=== PATIENT | female | born 1980 | race Caucasian/White ===

== ENCOUNTER → 2016-10-06 | Outpatient (CLI) | payer BC ==
[~2016-10-06] MED LIST: CHOL100010 PO; CHOL200010 PO; DOCO1CAP10 PO; FERR325T51 PO; IRON PO; MTR600X PO; MULT-506 PO; OXYC-57 PO; PRENTAB26 PO; SUMA50TA15 PO
== END | disposition home or self-care (01) ==
LOC: C.PAPS 12:35
PROVIDERS: ATTEND Obstetrics & Gynecology
DX: Z01.419 Encounter for gynecological examination (general) (routine) without abnormal findings (principal)

== ENCOUNTER → 2016-10-25 | Day surgery (SDC) | payer BC ==
[2016-10-11 11:51] VITALS: Ht 157.5 cm; Wt 57.7 kg
[~2016-10-25] VITALS: Ht 157.5 cm; Wt 57.7 kg
[~2016-10-25] MED LIST changes: +ATROPINE SULFATE 0.1 MG/ML 5ML SYR IV PRN; -CHOL100010 PO; -DOCO1CAP10 PO; +EpHEDrine SULFATE INJ 50 MG/ML AMP IV PRN; +FENTANYL CITRATE INJ 50 MCG/1 ML 2 ML VIAL IV PRN; +FENTANYL CITRATE INJ 50 MCG/1 ML 2 ML VIAL ONE; -FERR325T51 PO; +HYDROCODONE/ACETAMOPHEN 5/325MG TAB PO PRN; +LACTATED RINGER'S 1000ML 1,000 ML IV SCH; +LIDOCAINE HCL 2% 2 ML VIAL (20MG/ML) ONE; +LIDOCAINE/EPINEPHRINE 1% INJ 50 ML VIAL ONE; +MIDAZOLAM HCL 1 MG/ML 2ML VIAL ONE; -MTR600X PO; -OXYC-57 PO; -PRENTAB26 PO; +PROPOFOL IV EMULSION 10 MG/ML 20 ML VIAL IV ONE; +SUCCINYLCHOLINE CHLORIDE 20 MG/ML 10 ML VIAL IV ONE
--- NOTE | 2016-10-25 09:40 | History & Physical Bridge - [place] ---
H&P Re-Evaluation Bridge Note: I have examined the patient, reviewed the History & Physical and in the interval since the performance of the History & Physical I have noted the following changes of clinical significance: No changes noted
--- NOTE | 2016-10-25 10:41 | History and Physical: Surg Cnt ---
History & Physical Date Oct 25, 2016. Chief Complaint RIGHT EAR SKIN LESION History of Present Illness The patient is a 36 year old female with complaints of RIGHT EAR SKIN LESION FOR WHICH SHE DESIRES SURGICAL EXCISION UNDER LOCAL ANESTHESIA. Past Medical/Surgical History PMH: MIGRAINES, IRON DEFICIENCY ANEMIA, VITAMIN D DEFICIENCY PSH: S/P , S/P ORAL SURGERY Additional History Hepatic Disease: No Endocrine Disorder: No Kidney Disease: No Hypertension: No Heart Disease: No Bleeding Tendencies: No Infectious Diseases: No Allergies Coded Allergies: No Known Allergies (Unverified , 10/25/16) Home Medications Scheduled Cholecalciferol (Vitamin D), 1 CAP PO QAM Multivitamin (Multivitamin), 1 TAB PO QAM [Iron], 65 MG PO QAM Scheduled PRN Sumatriptan Succinate (Imitrex), 50 MG PO PRN PRN for Migraine Physical Examination Skin: warm/dry, no rash Eyes: normal inspection, EOMI, sclerae normal ENT: + pertinent finding (ASYMMETRIC UNIFORM BROWN PAPULE ~5MM WITH SMOOTH BORDERS INVOLVING SUPERIOR ASPECT OF RIGHT PINNA POSTERIORLY) Head: normocephalic, atraumatic Neck: supple, no adenopathy, trachea midline Respiratory/Chest: lungs clear, normal breath sounds, no respiratory distress Cardiovascular: regular rate, rhythm, no edema, no murmur Neurologic/Psych: no motor/sensory deficits, alert, normal reflexes, oriented x 3 Diagnosis RIGHT EAR SKIN LESION Plan of Treatment EXCISIONAL BIOPSY OF RIGHT EAR SKIN LESION
[2016-10-25 11:11] VITALS: TEMP 37.2
--- NOTE | 2016-10-25 11:19 | [facility] Operative Report ---
Operative Report Operative Date Oct 25, 2016. Pre-Operative Diagnosis Right Ear Skin Lesion Post-Operative Diagnosis Same Procedure(s) Performed Right Ear Skin Lesion Excision Surgeon Dr Campbell Director Of Consumer Affairs Surgeon(s) None Estimated Blood Loss 5ml Findings 5MM RAISED BROWN PAPULE INVOLVING POSTERIOR ASPECT OF RIGHT PINNA SKIN Specimens A: Right Ear Skin Lesion I attest to the content of the Intraoperative Record and any orders documented therein. Any exceptions are noted below.
--- NOTE | 2016-10-25 11:21 | Discharge Instructions ---
Discharge Instructions Date of Service Oct 25, 2016. Admission Reason for Admission: Right Ear Skin Lesion Discharge Discharge Diagnosis / Problem: SAME Discharge Goals Goal(s): Diagnostic testing Activity Recommendations Activity Limitations: as noted below KEEP RIGHT EAR DRY FOR 1 WEEK . Current Hospital Diet Patient's current hospital diet: Discharge Diet Recommended Diet: Regular Diet Procedures Procedures Performed: Right Ear Skin Lesion Excision Pending Studies Studies pending at discharge: no Medical Emergencies . Who to Call and When: Medical Emergencies: If at any time you feel your situation is an emergency, please call 911 immediately. . Non-Emergent Contact Non-Emergency issues call your: Surgeon . . "Provider Documentation" section prepared by Robert Campbell. VTE Core Measure Inpt VTE Proph given/why not?: Treatment not indicated
[2016-10-25 11:25] VITALS: BP 108/67; PULSE 61; O2SAT 100
--- NOTE | 2016-10-25 14:02 | OPERATIVE REPORT ---
DATE OF OPERATION: 10/25/2016 PREOPERATIVE DIAGNOSIS: Right ear skin lesion. POSTOPERATIVE DIAGNOSIS: Right ear skin lesion. PROCEDURE: Excisional biopsy of right ear skin lesion. SURGEON: Dr. Adrian MD ANESTHESIA: Local anesthesia. ESTIMATED BLOOD LOSS: 5 mL. FINDINGS: Raised brown papule that measured approximately 5 mm in greatest dimension involving the posterior aspect of the right pinna posteriorly. SPECIMENS: Right ear skin lesion for permanent pathological assessment. COMPLICATIONS: None. INDICATIONS FOR THE PROCEDURE: The patient is a very pleasant 36-year-old female with a history of a raised right ear skin lesion which has her worried for malignancy because of her history of frequent tanning. She denies any pain or increase in size of the lesion. She presents for the above-mentioned procedure on an outpatient elective basis. DETAILS OF PROCEDURE: After informed consent had been obtained from the patient, the patient was wheeled to the operating room and placed on the operating table in supine position. Monitors were placed and a total of 0.5 mL of 1% lidocaine with 1:100,000 epinephrine was used to inject the skin overlying the planned elliptical incision around the circular brown raised papule. The skin of the left ear and postauricular region was then prepped and draped in the usual sterile fashion. A #15 scalpel was then used to make an incision through the skin, subcutaneous tissue and adipose tissue. Care was taken to have a close margin to the circular brown papule. A total excised diameter was approximately 7 mm in greatest dimension. The specimen was sent off for permanent pathological assessment. Bovie electrocautery was used to achieve adequate hemostasis. The skin was reapproximated using several deep dermal 5-0 Monocryl sutures. The incision was then cleansed and dried. Dermabond was applied to the incision. This marked the end of the case. The patient tolerated the procedure well. There were no apparent complications. The patient was then transferred to the recovery room in stable condition. I attest to the content of the Intraoperative Record and any orders documented therein. Any exceptio ns are noted below.
== END | disposition home or self-care (01) ==
LOC: X.SURG 08:58
DX: D22.21 Melanocytic nevi of right ear and external auricular canal (principal); L98.9 Disorder of the skin and subcutaneous tissue, unspecified; D50.9 Iron deficiency anemia, unspecified; E55.9 Vitamin D deficiency, unspecified

== ENCOUNTER → 2017-11-18 | Outpatient (CLI) | payer BC ==
[~2017-11-18] MED LIST changes: -ATROPINE SULFATE 0.1 MG/ML 5ML SYR IV PRN; -EpHEDrine SULFATE INJ 50 MG/ML AMP IV PRN; -FENTANYL CITRATE INJ 50 MCG/1 ML 2 ML VIAL IV PRN; -FENTANYL CITRATE INJ 50 MCG/1 ML 2 ML VIAL ONE; -HYDROCODONE/ACETAMOPHEN 5/325MG TAB PO PRN; -LACTATED RINGER'S 1000ML 1,000 ML IV SCH; -LIDOCAINE HCL 2% 2 ML VIAL (20MG/ML) ONE; -LIDOCAINE/EPINEPHRINE 1% INJ 50 ML VIAL ONE; -MIDAZOLAM HCL 1 MG/ML 2ML VIAL ONE; -PROPOFOL IV EMULSION 10 MG/ML 20 ML VIAL IV ONE; -SUCCINYLCHOLINE CHLORIDE 20 MG/ML 10 ML VIAL IV ONE
== END | disposition home or self-care (01) ==
LOC: C.PAPS 17:02
PROVIDERS: ATTEND Obstetrics & Gynecology
DX: Z01.419 Encounter for gynecological examination (general) (routine) without abnormal findings (principal)